=== PATIENT | female | born 1955 | race American Indian/Alaskan Native ===

== ENCOUNTER 2016-11-20 07:50 | Emergency (ER) | payer BC ==
[2016-11-20 08:40] VITALS: RESP 16
[2016-11-20] MEDS ORDERED: Sodium Chloride 0.9% 1,000 ML IV ONE (08:44)
--- NOTE | 2016-11-20 08:45 | C.PDOC ---
History Of Present Illness 61 year old female with PMH of HTN and Hypercholesterolemia presents to ED with complaints of "acid reflux". Shes reports since the beginning of the month she has sour taste in mouth, intermittent gas pain and burning sensation in epigastric area. She states she was seen by PCP Dr Davis and prescribed Omeprazole which she has taken for approximately one week. She reports minimal relief. She is scheduled to see GI Dr Rip Smith on 12/12/16. Patient currently reports no abdominal pain. She is hoping to see GI doctor today. Fam Hx: Stomach Ca, father Time Seen by Provider: 11/20/16 08:30 Chief Complaint (Nursing): Abdominal Pain History Per: Patient History/Exam Limitations: no limitations Onset/Duration Of Symptoms: Days Current Symptoms Are (Timing): Still Present Past Medical History Reviewed: Historical Data, Nursing Documentation, Vital Signs Vital Signs: Last Vital Signs Temp 97.6 F 11/20/16 10:24 Pulse 80 11/20/16 10:24 Resp 16 11/20/16 10:24 BP 133/78 11/20/16 10:24 Pulse Ox 100 11/20/16 10:29 - Medical History PMH: HTN, Hypercholesterolemia Surgical History: Appendectomy Family History: States: No Known Family Hx Other Family History: Stomach CA, father - Social History Hx Alcohol Use: No Hx Substance Use: No - Immunization History Hx Tetanus Toxoid Vaccination: No Hx Influenza Vaccination: No Hx Pneumococcal Vaccination: No Review Of Systems Except As Marked, All Systems Reviewed And Found Negative. Constitutional: Positive for: Other ((+) Foul taste in mouth. ). Negative for: Fever Gastrointestinal: Positive for: Abdominal Pain (Burning sensation in the epigastric area ). Negative for: Nausea, Vomiting Physical Exam - Physical Exam Appears: Non-toxic, No Acute Distress Skin: Warm, Dry, No Rash Head: Atraumatic, Normacephalic Eye(s): bilateral: Normal Inspection, EOMI Oral Mucosa: Moist Tongue: Normal Appearing, No Swelling, No Fissured Lips: Normal Appearing, No Swelling Teeth: Normal Dentition Gingiva: Normal Appearing, No Erythema, No Bleeding Throat: Normal, No Erythema, No Exudate Neck: Normal ROM Chest: Symmetrical, No Tenderness Cardiovascular: Rhythm Regular, No Murmur Respiratory: Normal Breath Sounds, No Rales, No Rhonchi, No Wheezing Gastrointestinal/Abdominal: Normal Exam, Soft, No Tenderness, No Guarding, No Rebound Extremity: Normal ROM, No Swelling Neurological/Psych: Oriented x3, Normal Speech Gait: Steady ED Course And Treatment - Laboratory Results Result Diagrams: 11/20/16 09:25 11/20/16 09:25 Lab Interpretation: No Acute Changes O2 Sat by Pulse Oximetry: 100 (RA ) Pulse Ox Interpretation: Normal Medical Decision Making Medical Decision Making: Impression: Gastritis vs GERD Prior records reviewed: none available for review Plan: * Labs * IV NS, Pepcid Progress: Labs reviewed and unremarkable. Patient reevaluated resting comfortable in bed in no distress, has no pain. Advised patient to follow up as scheduled with GI next month. Continue with meds Disposition Counseled Patient/Family Regarding: Studies Performed, Diagnosis, Need For Followup, Rx Given - Disposition Referrals: Rip Smith MD [Medical Doctor] - Disposition: HOME/ ROUTINE Disposition Time: 10:10 Condition: IMPROVED Additional Instructions: Continue taking Omeprazole daily and may add Maalox for any abdominal discomfort Read over dietary recommendations to help with gastritis Please follow up with GI doctor as scheduled in December Prescriptions: Calcium Carbonate/Simethicone [Maalox Advanced 1000 mg-60 mg] 1 ctb PO Q8 #30 ctb Instructions: Gastritis (DC), Diet for Ulcers and Gastritis (ED) Forms: [employer] (Turkmen) - POA Present On Arrival: None - Clinical Impression Clinical Impression: Gastritis - PA / SOUND PRINTER / Resident Statement MD/DO has reviewed & agrees with the documentation as recorded. - Scribe Statement The provider has reviewed the documentation as recorded by the Tajibe Luz Maria Nguyen All medical record entries made by the Tajibkaylee were at my direction and personally dictated by me. I have reviewed the chart and agree that the record accurately reflects my personal performance of the history, physical exam, medical decision making, and the department course for this patient. I have also personally directed, reviewed, and agree with the discharge instructions and disposition.
[2016-11-20 09:32] LABS: BASO % 0.4 % (0.0-2.0); EOS % 0.2 % (0.0-4.0); HEMATOCRIT 38.8 % (34.0-47.0); LYMPH # 1.4 K/uL (1.0-4.3); LYMPH % 25.1 % (20.0-40.0); MEAN CELL VOLUME 80.4 fL (81.0-99.0); MEAN CORPUSCULAR HGB CONC 32.4 g/dL (33.0-37.0); MEAN PLATELET VOLUME 8.5 fL (7.2-11.7); MONO # 0.5 K/uL (0.0-0.8); MONO % 8.3 % (0.0-10.0); NRBC % 0.1 % (0.0-2.0); RED CELL DISTRIBUTION WIDTH 13.7 % (11.5-14.5); WHITE BLOOD COUNT 5.7 K/uL (4.8-10.8)
[2016-11-20 09:41] LABS: CHLORIDE 104 mmol/L (98-107); POTASSIUM 3.7 mmol/L (3.6-5.2); SODIUM 142 mmol/L (132-148)
[2016-11-20 09:43] LABS: AST/SGOT 21 U/L (14-36); BILIRUBIN,TOTAL 0.7 mg/dL (0.2-1.3); CARBON DIOXIDE 22 mmol/L (22-30); GFR AFRICAN-AMERICAN > 60; RBC URINE 38 /hpf (0-3); URINE BACTERIA RARE (<OCC); URINE BILIRUBIN NEGATIVE (NEGATIVE); URINE BLOOD 1+ (NEGATIVE); URINE COLOR Yellow (YELLOW); URINE GLUCOSE (UA) NORMAL (Normal); URINE KETONE 2+ mg/dL (NEGATIVE); URINE LEUKOCYTE ESTERASE 3+ Leu/uL (Negative); URINE PROTEIN 1+ mg/dL (NEGATIVE); URINE UROBILINOGEN NORMAL mg/dL (0.2-1.0); WBC URINE 47 /hpf (0-5)
[2016-11-20 09:44] LABS: ALB/GLOB RATIO 1.1 (1.0-2.1); ALKALINE PHOSPHATASE 76 U/L (38-126); ALT/SGPT 26 U/L (9-52); BLOOD UREA NITROGEN 11 mg/dL (7-17); CHOLESTEROL 176 mg/dL (0-199); GLUCOSE,RANDOM 80 mg/dL (65-105); TOTAL PROTEIN 7.4 g/dL (6.3-8.3)
[2016-11-20] MEDS ORDERED: Sodium Chloride 0.9% 1,000 ML ONE (09:45)
[2016-11-20 10:24] VITALS: BP 133/78; PULSE 80; TEMP 97.6
[2016-11-20 10:29] VITALS: O2SAT 100
== END 2016-11-20 10:37 | disposition home or self-care (01) ==
LOC: C.ER 07:50
DX: K29.70 Gastritis, unspecified, without bleeding (principal)
CPT/HCPCS: 80053; 80061; 81001; 83690; 85025; 86677; 96361; 96374; 99284; J7040

== ENCOUNTER 2016-12-05 14:40 | Observation (INO) | payer BC ==
[2016-12-05 15:06] VITALS: BMI 38.9
--- NOTE | 2016-12-05 15:32 | C.PDOC ---
History Of Present Illness 61 year old female with PMH of HTN and Hypercholesterolemia presents to ED with complaints of intermittent cramping left lower abdominal pain for three days. Patient reports today the pain can became sharp and when she went to the bathroom had loose stool and noticed bright red blood when she wiped. Patient has been experiencing upper abdominal pain for weeks, take omeprazole daily. Patient is scheduled to see GI Dr Rip Smith on 12/12/16. She denies pain with bowel movement, dysuria, fever, nausea, or vomiting. Time Seen by Provider: 12/05/16 15:23 Chief Complaint (Nursing): Abdominal Pain History Per: Patient History/Exam Limitations: no limitations Onset/Duration Of Symptoms: Days (3 days ), Intermittent Episodes Current Symptoms Are (Timing): Still Present Location Of Pain/Discomfort: LLQ Radiation Of Pain To:: None Quality Of Discomfort: Sharp, Cramping Associated Symptoms: denies: Fever, Chills, Nausea, Vomiting, Diarrhea Recent travel outside of the [place]: No Abnormal Vaginal Bleeding: No Past Medical History Reviewed: Historical Data, Nursing Documentation, Vital Signs Vital Signs: Last Vital Signs Temp 98 F 12/05/16 19:03 Pulse 65 12/05/16 19:03 Resp 16 12/05/16 19:03 BP 139/83 12/05/16 19:03 Pulse Ox 100 12/05/16 19:03 - Medical History PMH: HTN, Hypercholesterolemia Surgical History: Appendectomy Family History: States: Unknown Family Hx - Social History Hx Alcohol Use: No Hx Substance Use: No - Immunization History Hx Tetanus Toxoid Vaccination: No Hx Influenza Vaccination: No Hx Pneumococcal Vaccination: No Review Of Systems Constitutional: Negative for: Fever, Chills Cardiovascular: Negative for: Chest Pain, Palpitations Respiratory: Negative for: Cough, Shortness of Breath Gastrointestinal: Positive for: Abdominal Pain. Negative for: Nausea, Vomiting , Diarrhea Genitourinary: Negative for: Dysuria Neurological: Negative for: Headache, Dizziness Physical Exam - Physical Exam Appears: Non-toxic, No Acute Distress Skin: Warm, Dry Head: Atraumatic, Normacephalic Eye(s): bilateral: Normal Inspection, PERRL, EOMI Oral Mucosa: Moist Neck: Normal ROM, Supple Chest: Symmetrical, No Deformity Cardiovascular: Rhythm Regular, No Murmur Respiratory: Normal Breath Sounds, No Rales, No Rhonchi, No Wheezing Gastrointestinal/Abdominal: Soft, Tenderness (LLQ tenderness ), No Distention, No Guarding, No Rebound Back: Normal Inspection, No CVA Tenderness Extremity: Normal ROM, No Tenderness Neurological/Psych: Oriented x3, Normal Speech Gait: Steady ED Course And Treatment - Laboratory Results Result Diagrams: 12/05/16 15:56 12/05/16 15:56 Lab Interpretation: No Acute Changes O2 Sat by Pulse Oximetry: 98 (room air ) Pulse Ox Interpretation: Normal - CT Scan/US CT Abdomen and Pelvis with contrast Other Rad Studies (CT/US): Read By Radiologist, Radiology Report Reviewed CT/US Interpretation: FINDINGS: LOWER THORAX: No visible consolidation, pleural effusion, or pneumothorax. LIVER: Mild hypoattenuation adjacent to the falciform ligament, possibly focal fat. GALLBLADDER AND BILE DUCTS: Unremarkable. PANCREAS: Unremarkable. SPLEEN: Unremarkable. ADRENALS: Unremarkable. KIDNEYS AND URETERS: The kidneys enhance symmetrically. No hydronephrosis or obstructing calculus identified. VASCULATURE: No aortic aneurysm. BOWEL: Stomach is nondistended. Lack of oral contrast limits evaluation for bowel pathology. Bowel loops appear within normal limits of caliber without evidence of obstruction. APPENDIX: The appendix is not identified. Surgical changes noted at the base of the cecum presumably due to appendectomy. Correlate with surgical history. No secondary signs acute appendicitis. PERITONEUM: No significant free fluid. No definite free air. LYMPH NODES: No bulky adenopathy identified. BLADDER: Decompressed urinary bladder limits evaluation. REPRODUCTIVE: Evidence of lobulated uterus containing numerous calcifications presumably related to large degenerating fibroid. BONES: No acute osseous abnormality is detected. OTHER FINDINGS: 9 mm fat containing umbilical hernia. IMPRESSION: Mild hypoattenuation adjacent to the falciform ligament, possibly focal fatty infiltration. Lobulated uterus containing numerous calcifications presumably related to large degenerating fibroid. 9 mm fat containing umbilical hernia. Additional findings as above. Progress Note: UA, blood work, and Abdomen and pelvis CT was ordered. Patient was given Pepcid, Toradol, and IV fluids. Medical Decision Making Medical Decision Making: Impression: LLQ abdominal pain, suspect diverticulitis Prior records reviewed: patient seen 11/20/16 for abdominal pain, had normal labs and discharged. Plan: * Labs * CT A/P * Iv NS, Pepcid, toradol * Ed obs ED OBSERVATION Discharge: Yes Date of observation admission: 12/05/16 Time of observation admission: 15:35 - Observation admission statement Patient is being placed in observation because:: LLQ Abdominal pain - Goals of Observation Goals of observation are:: Labs, CT imaging, IV hydration, analgesics - Progress Note Progress Note: 12/05/16 16:12 Labs reviewed with no acute findings or significant changes from prior visit, still pending urine sample 12/05/16 17:30 Patient is resting and reports pain is improving. Still pending urine sample. CT pending. 12/05/16 18:12 Urine shows 3+LE, WBC 90, ketones and blood. 12/05/16 18:22 CT shows mild hypoattenuation adjacent to the falciform ligament, possibly focal fatty infiltration. Lobulated uterus containing numerous calcifications presumably related to large degenerating fibroid. 9 mm fat containing umbilical hernia. 18:43 Patient reevaluated and reports feeling better. Explained results to patient and provide copy of results. Patient to be discharged with Rx for UTI. REcommend follow up with PCP and GI Disposition Counseled Patient/Family Regarding: Studies Performed, Diagnosis, Need For Followup - Disposition Disposition: HOME/ ROUTINE Disposition Time: 18:43 Condition: STABLE - POA Present On Arrival: None - Clinical Impression Clinical Impression: UTI (urinary tract infection), Abdominal pain - PA / [employer]ER / Resident Statement MD/DO has reviewed & agrees with the documentation as recorded. - Scribe Statement The provider has reviewed the documentation as recorded by the Scribe Eunice Jerez All medical record entries made by the Trung were at my direction and personally dictated by me. I have reviewed the chart and agree that the record accurately reflects my personal performance of the history, physical exam, medical decision making, and the department course for this patient. I have also personally directed, reviewed, and agree with the discharge instructions and disposition.
[2016-12-05] MEDS ORDERED: Sodium Chloride 0.9% 1,000 ML IV ONE (15:33)
[2016-12-05] MEDS ORDERED: Sodium Chloride 0.9% 1,000 ML ONE (15:54)
[2016-12-05 16:01] LABS: BASO % 0.3 % (0.0-2.0); EOS % 0.4 % (0.0-4.0); LYMPH # 1.6 K/uL (1.0-4.3); LYMPH % 26.6 % (20.0-40.0); MEAN CELL VOLUME 79.5 fL (81.0-99.0); MEAN CORPUSCULAR HEMOGLOBIN 25.8 pg (27.0-31.0); MEAN CORPUSCULAR HGB CONC 32.5 g/dL (33.0-37.0); MEAN PLATELET VOLUME 8.8 fL (7.2-11.7); MONO # 0.5 K/uL (0.0-0.8); MONO % 8.9 % (0.0-10.0); NRBC % 0.1 % (0.0-2.0); RED CELL DISTRIBUTION WIDTH 13.8 % (11.5-14.5)
[2016-12-05 16:12] LABS: CHLORIDE 102 mmol/L (98-107); POTASSIUM 4.3 mmol/L (3.6-5.2); SODIUM 139 mmol/L (132-148)
[2016-12-05 16:14] LABS: BILIRUBIN,TOTAL 0.8 mg/dL (0.2-1.3); GFR AFRICAN-AMERICAN > 60
[2016-12-05 16:15] LABS: ALB/GLOB RATIO 1.3 (1.0-2.1); ALKALINE PHOSPHATASE 72 U/L (38-126); ALT/SGPT 28 U/L (9-52); AST/SGOT 29 U/L (14-36); BLOOD UREA NITROGEN 10 mg/dL (7-17); CALCIUM 9.4 mg/dl (8.6-10.4); CARBON DIOXIDE 24 mmol/L (22-30); GLUCOSE,RANDOM 94 mg/dL (65-105)
[2016-12-05] MEDS ORDERED: Iohexol 300 100 ML IJ ONE (17:43)
[2016-12-05 18:07] LABS: RBC URINE 35 /hpf (0-3); URINE BACTERIA MANY (<OCC); URINE BILIRUBIN NEGATIVE (NEGATIVE); URINE BLOOD 2+ (NEGATIVE); URINE COLOR Yellow (YELLOW); URINE GLUCOSE (UA) NORMAL (Normal); URINE KETONE 2+ mg/dL (NEGATIVE); URINE LEUKOCYTE ESTERASE 3+ Leu/uL (Negative); URINE PROTEIN 1+ mg/dL (NEGATIVE); URINE UROBILINOGEN NORMAL mg/dL (0.2-1.0); WBC URINE 90 /hpf (0-5)
--- NOTE | 2016-12-05 18:23 | CT ---
PROCEDURE: CT Abdomen and Pelvis with contrast HISTORY: LLQ abd pain COMPARISON: None available. TECHNIQUE: Contrast dose: 100 mL Omnipaque 300 Radiation dose: Total exam DLP = 973.59 mGy-cm. This CT exam was performed using one or more of the following dose reduction techniques: Automated exposure control, adjustment of the mA and/or kV according to patient size, and/or use of iterative reconstruction technique. FINDINGS: LOWER THORAX: No visible consolidation, pleural effusion, or pneumothorax. LIVER: Mild hypoattenuation adjacent to the falciform ligament, possibly focal fat. GALLBLADDER AND BILE DUCTS: Unremarkable. PANCREAS: Unremarkable. SPLEEN: Unremarkable. ADRENALS: Unremarkable. KIDNEYS AND URETERS: The kidneys enhance symmetrically. No hydronephrosis or obstructing calculus identified. VASCULATURE: No aortic aneurysm. BOWEL: Stomach is nondistended. Lack of oral contrast limits evaluation for bowel pathology. Bowel loops appear within normal limits of caliber without evidence of obstruction. APPENDIX: The appendix is not identified. Surgical changes noted at the base of the cecum presumably due to appendectomy. Correlate with surgical history. No secondary signs acute appendicitis. PERITONEUM: No significant free fluid. No definite free air. LYMPH NODES: No bulky adenopathy identified. BLADDER: Decompressed urinary bladder limits evaluation. REPRODUCTIVE: Evidence of lobulated uterus containing numerous calcifications presumably related to large degenerating fibroid. BONES: No acute osseous abnormality is detected. OTHER FINDINGS: 9 mm fat containing umbilical hernia. IMPRESSION: Mild hypoattenuation adjacent to the falciform ligament, possibly focal fatty infiltration. Lobulated uterus containing numerous calcifications presumably related to large degenerating fibroid. 9 mm fat containing umbilical hernia. Additional findings as above.
[2016-12-05 19:04] VITALS: BP 139/83; PULSE 65; RESP 16; TEMP 98
[2016-12-08 22:49] VITALS: O2SAT 98
== END 2016-12-05 18:44 | disposition home or self-care (01) ==
LOC: C.ER 14:40 → C.9OBSV 15:35
PROVIDERS: ADMIT Emergency Medicine; ATTEND Emergency Medicine
DX: N39.0 Urinary tract infection, site not specified (principal)
CPT/HCPCS: 74177; 80053; 81001; 83690; 85025; 96360; 96374; G0378; J1885; J7040; Q9967

== ENCOUNTER 2017-01-11 19:42 | Emergency (ER) | payer BC ==
[2017-01-11 19:42] VITALS: BMI 38.9
[2017-01-11 20:29] VITALS: RESP 16
[2017-01-11 20:40] LABS: BASO % 0.3 % (0.0-2.0); EOS % 0.5 % (0.0-4.0); HEMATOCRIT 40.7 % (34.0-47.0); LYMPH # 2.4 K/uL (1.0-4.3); LYMPH % 32.9 % (20.0-40.0); MEAN CELL VOLUME 79.5 fL (81.0-99.0); MEAN CORPUSCULAR HEMOGLOBIN 26.6 pg (27.0-31.0); MEAN CORPUSCULAR HGB CONC 33.4 g/dL (33.0-37.0); MEAN PLATELET VOLUME 8.6 fL (7.2-11.7); MONO # 0.6 K/uL (0.0-0.8); RED CELL DISTRIBUTION WIDTH 14.5 % (11.5-14.5); WHITE BLOOD COUNT 7.2 K/uL (4.8-10.8)
[2017-01-11 20:47] LABS: CHLORIDE 96 mmol/L (98-107)
[2017-01-11 20:48] LABS: POTASSIUM 3.4 mmol/L (3.6-5.2); SODIUM 136 mmol/L (132-148)
[2017-01-11 20:51] LABS: ALB/GLOB RATIO 1.1 (1.0-2.1); ALKALINE PHOSPHATASE 77 U/L (38-126); ALT/SGPT 38 U/L (9-52); AST/SGOT 28 U/L (14-36); BILIRUBIN,TOTAL 0.7 mg/dL (0.2-1.3); BLOOD UREA NITROGEN 13 mg/dL (7-17); CALCIUM 9.5 mg/dl (8.6-10.4); CARBON DIOXIDE 28 mmol/L (22-30); GFR AFRICAN-AMERICAN > 60; GLUCOSE,RANDOM 89 mg/dL (65-105); TOTAL PROTEIN 8.5 g/dL (6.3-8.3)
--- NOTE | 2017-01-11 20:58 | C.PDOC ---
History Of Present Illness 61 year old female who presents to the ER with a complaint of SOB over the past few days. Patient states she is normally active but now has SOB with exertion. Patient reports she has lower extremity swelling and notes she felt her heart rate beating faster earlier today. Denies fever, chills, cough, or urinary symptoms. Time Seen by Provider: 01/11/17 20:56 Chief Complaint (Nursing): Shortness Of Breath History Per: Patient History/Exam Limitations: no limitations Onset/Duration Of Symptoms: Days Current Symptoms Are (Timing): Still Present Initiating Event: Other (Not known) Exacerbating Factor(s): Exertion Current Respiratory Medications: None Associated Symptoms: denies: Fever, Chills, Other (Cough, Urinary symptoms) Recent travel outside of the [place]: No Past Medical History Reviewed: Historical Data, Nursing Documentation, Vital Signs Vital Signs: Last Vital Signs Temp 98.2 F 01/11/17 22:24 Pulse 82 01/11/17 22:24 Resp 16 01/11/17 22:24 BP 126/75 01/11/17 22:24 Pulse Ox 99 01/11/17 22:24 - Medical History PMH: Arthritis, HTN, Hypercholesterolemia Surgical History: Appendectomy Family History: States: Unknown Family Hx - Social History Hx Alcohol Use: No Hx Substance Use: No - Immunization History Hx Tetanus Toxoid Vaccination: No Hx Influenza Vaccination: No Hx Pneumococcal Vaccination: No Review Of Systems Constitutional: Negative for: Fever, Chills Cardiovascular: Negative for: Chest Pain, Palpitations Respiratory: Negative for: Cough Genitourinary: Negative for: Dysuria, Hematuria Physical Exam - Physical Exam Appears: Non-toxic, No Acute Distress, Other (Speaking in complete sentences) Skin: Normal Color, Warm, Dry Head: Atraumatic, Normacephalic Oral Mucosa: Moist Throat: Normal, No Erythema Neck: Normal, Supple Chest: Symmetrical Cardiovascular: Rhythm Regular Respiratory: Normal Breath Sounds, No Rales, No Rhonchi, No Wheezing Gastrointestinal/Abdominal: Soft, No Tenderness Extremity: Pedal Edema (Pitting), No Calf Tenderness Pulses: Left Dorsalis Pedis: Normal, Right Dorsalis Pedis: Normal Neurological/Psych: Oriented x3, Normal Speech, Normal Cognition ED Course And Treatment - Laboratory Results Result Diagrams: 01/11/17 20:34 01/11/17 20:34 O2 Sat by Pulse Oximetry: 100 (Room air) Pulse Ox Interpretation: Normal Medical Decision Making Medical Decision Making: Plan: * EKG * Blood work * CXR Disposition - Disposition Referrals: at [facility] [Outside] Disposition: HOME/ ROUTINE Disposition Time: 22:09 Condition: GOOD Forms: [employer] [facility] (Botswanan) - Clinical Impression Clinical Impression: Palpitations, Dyspnea - Scribe Statement The provider has reviewed the documentation as recorded by the Scribe Iván Willis All medical record entries made by the Tajibe were at my direction and personally dictated by me. I have reviewed the chart and agree that the record accurately reflects my personal performance of the history, physical exam, medical decision making, and the department course for this patient. I have also personally directed, reviewed, and agree with the discharge instructions and disposition.
[2017-01-11 22:25] VITALS: BP 126/75; PULSE 82; TEMP 98.2
[2017-01-11 23:32] VITALS: O2SAT 100
--- NOTE | 2017-01-12 07:58 | RAD ---
HISTORY: Shortness of breath COMPARISON: No prior. TECHNIQUE: Chest PA and lateral FINDINGS: LUNGS: Mild venous congestion. PLEURA: No significant pleural effusion identified. No pneumothorax apparent. CARDIOVASCULAR: Normal. OSSEOUS STRUCTURES: No significant abnormalities. VISUALIZED UPPER ABDOMEN: Normal. OTHER FINDINGS: None. IMPRESSION: Mild venous congestion.
--- NOTE | 2017-01-14 18:15 | CARD ---
APPROVED REPORT EKG Measurement Heart [id number] <Conclusion> Normal sinus rhythm Moderate voltage criteria for LVH, may be normal variant Borderline ECG
== END 2017-01-11 22:25 | disposition home or self-care (01) ==
LOC: C.ER 19:42
DX: R00.2 Palpitations (principal); R06.00 Dyspnea, unspecified